=== PATIENT | female | born 1980 | race Two or more races ===

== ENCOUNTER 2018-08-04 10:37 | Outpatient (CLI) | payer OTHER | END 2018-08-04 10:49 | disposition home or self-care (01) | LOC: LAB 10:37 | DX: B37.3 Candidiasis of vulva and vagina (principal); N92.0 Excessive and frequent menstruation with regular cycle ==

== ENCOUNTER 2019-06-19 20:34 | Emergency (ER) | payer OTHER ==
[~2019-06-19] VITALS: Ht 162.6 cm; Wt 63.5 kg
== END 2019-06-20 00:06 | disposition home or self-care (01) ==
LOC: ER 20:34
DX: D25.1 Intramural leiomyoma of uterus (principal); N83.291 Other ovarian cyst, right side; N93.8 Other specified abnormal uterine and vaginal bleeding

== ENCOUNTER → 2020-01-05 13:57 | Outpatient (CLI) | payer OTHER | END | disposition home or self-care (01) | LOC: LAB 13:57 | PROVIDERS: ATTEND Specialist | DX: D50.8 Other iron deficiency anemias (principal) ==

== ENCOUNTER 2021-02-06 11:14 | Inpatient (IN) | payer OTHER ==
[~2021-02-06] VITALS: Ht 162.6 cm; Wt 63.5 kg
[2021-02-06] MEDS ORDERED: LYSTEDA650 MG PO (11:24)
--- NOTE | 2021-02-06 11:24 | NUR ---
SE RECIBE PTE ALERTA Y ORIENTADA X3,REFIERE LLEVAR 28 TURNER CON MENSTRUACCION ,ES PTE DEL DR.RAUL OLESYA WILKINS,REFIERE TENER CEFALEA ,SENTIRSE DEBIL.
--- NOTE | 2021-02-06 11:59 | NUR ---
SE COLOCA EN TRIAGE PEDIATRICO Y SE LE ORIENTA A NO LEVANTARSE.
--- NOTE | 2021-02-06 13:09 | NUR ---
SE LE ORIENTA A LA PACIENTE SOBRE LAS ORDENES MEDICAS, REFIERE ENTEDER LAS MISMAS. SE CANALIZA Y SE LE COLOCA S/L, SE LE DA LOS MEDICAMENTOS A [place], SE LE JAVI LAS MUETRAS DE PANTERA Y SE LE ORIENTA A NO LEVANTARSE, SRINIVAS LA ORDEN MEDICA.
--- NOTE | 2021-02-06 16:00 | NUR ---
1510 SE CONTACTA A BANCO DE PANTERA PARA CONCER SI PTE POSEE HX DE TRANSFUSION; REFIERE QUE [place] PO[place] HX. [phone] SE ORIENTA PTE SOBRE ORDENES DE [place] REFIERE COMPRENDER. SE CANALIZA VENA BJO MEDIDAS ASEPTICAS, PATENTE GAIL DE EDEMA Y ERITEMA. SE ADMNINSTRAN MEDICAMENTOS, BAJO MEDIDAS ASEPTICAS. SE COLECTAN TUBOS PILOTOS PARA DOS UNIDADES DE PRBCS PARA TRANSFUNDIR. 1555 SE ENTREGAN TUBOS PILOTOS A BANCO DE PANTERA APCH A PARA REQUIZAR DOS UNIDADES DE PRBCS. 1400 SE ENTREGA PTE A AREA D EOBSERVACION PARA CONTINUIDAD DE TRATAMIENTO.
--- NOTE | 2021-02-06 17:08 | NUR ---
TIM NOTIFICA QUE LLEGARON 2 UNIDADES DE PRBC, LISTAS PARA RECOGER
--- NOTE | 2021-02-07 03:33 | NUR ---
3:00AM SE COMIENZA A TRANFUNDIR PTE SRINIVAS ORDEN MEDICA, AL MOMENTO PTE TOLERA Y SE ENCUENTRA GAIL DE SIGNOS O SINTOMAS DE REACCION ADVERSA. SE MANTIENE BAJO OBSERVACION.
--- NOTE | 2021-02-07 07:50 | NUR ---
SE RECIB EPACIENTE FEMINA DE 40 ANOS DE EDAD UBICADA EN AURELIO LOLA 6 CON UNIDAD DE PRBC BAJANDO. PACIENTE ALERTA, CONCIENTE Y ORIENTADA X3. PACIENTE AMBULA SIN DIFICULTAD. PACIENTE AL MOMENTO A TOLERADO UNIDAD DE PANTERA. LA MISMA TERMINO A LAS 7:00AM Y SE REALIZA CORBIN DE SIGNOS VITALES 15 MINUTIS LUEGO DE TERMINAR LA MISMA. AL MOMENTO SE MANTIENE EN OBSERVACION PENDIENTE DE CONSULTA Y TRANFUNDIR SEGUNDA UNIDAD DE PANTERA EN HORA A HORA Y MEDIA.
--- NOTE | 2021-02-07 10:25 | NUR ---
SE LE JAVI S/V LOS CUALES SE MANTIENEN ESTABLES 113/63, 96.6,60,100%. SE BUSCA LA SEGUNDA UNIDAD DE PANTERA Y SE VERIFICA CON LOLA DE SERIA [phone] CON FECHA DE EXP 03/05/21, TIPO DE PANTERA A POSITIVO. SE MANTIENE BAJO OBSERVACION.
--- NOTE | 2021-02-07 10:49 | NUR ---
SE LE VUELVE A [place] LOS S/V 96/67, 98.6, 59, 100%. SE MANTIENE EN OBSERVACION.
--- NOTE | 2021-02-07 11:12 | NUR ---
SE LE JAVI S/V 103/61,97.7,57,100%, SE MANTIENE EN OBSERVACION.
--- NOTE | 2021-02-07 11:16 | NUR ---
SE MONITOREAN S/V 99/49, 98.1, 54, 100. SE MANTIENE EN OBSERVACION.
--- NOTE | 2021-02-07 13:01 | NUR ---
SE LE CAMBIA TRANSFUCION DE PANTERA AL SALIN LOCK DE LA [place], DEBIDO A FILTRACION DE PANTERA EN SALIN LOCK DEL OSMAN NICHOLAS.
--- NOTE | 2021-02-07 14:25 | NUR ---
TRANSFUCION DE PANTERA FINALIZADA, SE LE RETIRA DICHA TRANSFUCION, SE EVALUA A PACIENTE Y ESTA REFIERE QUE SE SIENTE JOHN. BOLSA DE PANTERA EN RAHUL BIOHAZARD.
[2021-02-08] MEDS ORDERED: DAFLONEX-XL 11300 MG (15:14)
[2021-02-10] MEDS ORDERED: LYSTEDA650 MG PO (14:19)
[2021-02-10] MEDS ORDERED: DAFLONEX-XL 11300 MG PO (14:20)
== END 2021-02-10 14:39 | disposition home or self-care (01) | DRG 812 ==
LOC: ER 11:14 → SEC-K 02-07 17:42 → MEDJ 02-08 02:15
PROVIDERS: ADMIT Internal Medicine Hematology & Oncology; ATTEND Internal Medicine Hematology & Oncology
PROC: 30233N1 Transfusion of Nonautologous Red Blood Cells into Peripheral Vein, Percutaneous Approach (ICD-10-PCS; principal; 2021-02-07)
PROC: BU46ZZZ Ultrasonography of Uterus (ICD-10-PCS; 2021-02-07)
DX: D50.0 Iron deficiency anemia secondary to blood loss (chronic) (principal); D68.0 Von Willebrand disease; D25.9 Leiomyoma of uterus, unspecified; N93.8 Other specified abnormal uterine and vaginal bleeding; G44.209 Tension-type headache, unspecified, not intractable; Z20.822 Contact with and (suspected) exposure to COVID-19